=== PATIENT | female | born 1965 | race Caucasian/White ===

== ENCOUNTER 2019-12-18 12:27 | Outpatient (CLI) | payer BC | END 2019-12-18 23:59 | disposition home or self-care (01) | LOC: CFH 12:27 | PROVIDERS: ATTEND Nurse Practitioner Family | DX: Z12.31 Encounter for screening mammogram for malignant neoplasm of breast (principal); N64.89 Other specified disorders of breast | CPT/HCPCS: 77063; 77067 ==